=== PATIENT | female | born 1965 | race Caucasian/White ===

== ENCOUNTER 2018-09-24 12:11 | Emergency (ER) | payer MEDICARE ==
[~2018-09-24] VITALS: Ht 167.6 cm; Wt 120.2 kg
--- NOTE | 2018-09-24 12:28 | ED Cough/URI ---
General Chief Complaint: Respiratory Problems Stated Complaint: SOB,COUGH - PT STATES SHE HAS COPD Source: patient, RN notes reviewed Exam Limitations: no limitations History of Present Illness Date Seen by Provider: Sep 24, 2018 Time Seen by Provider: 12:28 Initial Comments Patient presents c/ c/o worsening cough and dyspnea x 3 weeks. Reports a PMH of COPD, but isn't on any meds. Timing/Duration: other (x 3 weeks) Severity/Quality: moderate Prior Episodes/Possible Cause: unknown cause Modifying Factors: Worse With Activity, Worse With Coughing Associated Symptoms: denies symptoms (x/ as noted), cough, shortness of breath Allergies and Home Medications Allergies Coded Allergies: prednisone (Verified Allergy, Unknown, Rash, 09/24/18) Patient Home Medication List Home Medication List Reviewed: Yes Review of Systems Review of Systems Constitutional: see HPI Respiratory: see HPI, dyspnea on exertion, short of breath : No All Other Systems Reviewed Negative Unless Noted: Yes (Negative excepted noted.) Physical Exam Vital Signs - First Documented 09/24/18 12:15 Temp 98.8 Pulse 88 Resp 16 B/P (MAP) 5/6 (6) Pulse Ox 92 O2 Delivery Nasal Cannula O2 Flow Rate 2.00 Capillary Refill : Height: '" Weight: lbs. oz. kg; BMI Method: General Appearance: WD/WN, no apparent distress, obese Respiratory: no respiratory distress, crackles (faint) Cardiovascular: regular rate, rhythm Neurologic/Psychiatric: no motor/sensory deficits, alert, oriented x 3, depressed affect Skin: warm/dry Progress/Results/Core Measures Suspected Sepsis SIRS Temperature: Pulse: Respiratory Rate: Laboratory Tests 09/24/18 13:45: White Blood Count 11.1H Blood Pressure / Mean: Laboratory Tests 09/24/18 13:45: Creatinine 1.11, Platelet Count 199, Total Bilirubin 0.7 Results/Orders Lab Results Laboratory Tests Test 09/24/18 13:43 09/24/18 13:45 09/24/18 16:25 Range/Units Troponin T 17 H 17 H <=10 NG/L White Blood Count 11.1 H 4.3-11.0 10^3/uL Red Blood Count 5.53 4.35-5.85 10^6/uL Hemoglobin 16.5 H 11.5-16.0 G/DL Hematocrit 51 35-52 % Mean Corpuscular Volume 92 80-99 FL Mean Corpuscular Hemoglobin 30 25-34 PG Mean Corpuscular Hemoglobin Concent 32 32-36 G/DL Red Cell Distribution Width 14.0 10.0-14.5 % Platelet Count 199 130-400 10^3/uL Mean Platelet Volume 10.6 H 7.4-10.4 FL Neutrophils (%) (Auto) 82 H 42-75 % Lymphocytes (%) (Auto) 9 L 12-44 % Monocytes (%) (Auto) 7 0-12 % Eosinophils (%) (Auto) 1 0-10 % Basophils (%) (Auto) 1 0-10 % Neutrophils # (Auto) 9.0 H 1.8-7.8 X 10^3 Lymphocytes # (Auto) 1.0 1.0-4.0 X 10^3 Monocytes # (Auto) 0.8 0.0-1.0 X 10^3 Eosinophils # (Auto) 0.1 0.0-0.3 10^3/uL Basophils # (Auto) 0.1 0.0-0.1 10^3/uL D-Dimer 0.27 0.00-0.49 UG/ML Sodium Level 141 135-145 MMOL/L Potassium Level 4.5 3.6-5.0 MMOL/L Chloride Level 102 98-107 MMOL/L Carbon Dioxide Level 26 21-32 MMOL/L Anion Gap 13 5-14 MMOL/L Blood Urea Nitrogen 13 7-18 MG/DL Creatinine 1.11 0.60-1.30 MG/DL Estimat Glomerular Filtration Rate 52 BUN/Creatinine Ratio 12 Glucose Level 101 70-105 MG/DL Calcium Level 9.4 8.5-10.1 MG/DL Corrected Calcium 9.6 8.5-10.1 MG/DL Magnesium Level 1.9 1.8-2.4 MG/DL Total Bilirubin 0.7 0.1-1.0 MG/DL Aspartate Amino Transf (AST/SGOT) 20 5-34 U/L Alanine Aminotransferase (ALT/SGPT) 21 0-55 U/L Alkaline Phosphatase 92 40-136 U/L Pro-B-Type Natriuretic Peptide 931.3 H <75.0 PG/ML Total Protein 7.1 6.4-8.2 GM/DL Albumin 3.8 3.2-4.5 GM/DL My Orders Orders - SHARON BALBUENA DO Ed Iv/Invasive Line Start (09/24/18 12:31) Ekg Tracing (09/24/18 12:31) Cbc With Automated Diff (09/24/18 12:31) Comprehensive Metabolic Panel (09/24/18 12:31) Fibrin Degradation Products (09/24/18 12:31) Magnesium (09/24/18 12:31) Probnp Fs (09/24/18 12:31) Chest Pa/Lat (2 View) (09/24/18 12:31) Ct Chest W (09/24/18 14:32) Troponin T (09/24/18 14:32) Iohexol Injection (Omnipaque 350 Mg/Ml 1 (09/24/18 15:00) Received Contrast (Hold Metformin- Contr (09/24/18 15:00) Sodium Chloride Flush (Catheter Flush Sy (09/24/18 15:00) Ns (Ivpb) (Sodium Chloride 0.9% Ivpb Bag (09/24/18 15:00) Troponin T (09/24/18 16:29) Medications Given in ED Vital Signs/I&O 09/24/18 09/24/18 12:15 19:20 Temp 98.8 98.8 Pulse 88 88 Resp 16 16 B/P (MAP) 5/6 (6) 125/88 (100) Pulse Ox 92 93 O2 Delivery Nasal Cannula Room Air O2 Flow Rate 2.00 Capillary Refill : ECG Initial ECG Impression Date: Sep 24, 2018 Initial ECG Impression Time: 12:47 Initial ECG Rate: 82 Initial ECG Rhythm: Normal Sinus Initial ECG Impression: Nonspecific Changes (probable LAE; RVH) Initial ECG Comparisson: No Previous ECG Available Diagnostic Imaging Diagonstic Imaging: Xray, CT Plain Films/CT/US/NM/MRI: chest (see report) Departure Impression Primary Impression: CHF with unknown LVEF Additional Impressions: Suspected Pulmonary Hypertension Elevated troponin COPD (chronic obstructive pulmonary disease) Disposition: 02 XFER SHT-TRM HOSP Condition: Stable Transfer Transfer Facility: [facility] Method of Transfer: EMS Departure-Patient Inst. Referrals: NO,LOCAL PHYSICIAN (PCP/Family) Primary Care Physician SHARON BALBUENA DO Sep 24, 2018 12:28
--- NOTE | 2018-09-24 13:54 | Diagnostic Imaging Report ---
INDICATION: Cough. COMPARISON: None available. FINDINGS: Bilateral airspace and interstitial opacities are present in the mid and lower lung zones. There is prominence of the right perihilar region. No pleural effusion or pneumothorax. Heart is enlarged. There is also enlargement of the pulmonary trunk. IMPRESSION: 1. Imaging features are most suggestive of interstitial edema versus bronchiolitis. 2. Potential right hilar lymphadenopathy versus enlargement of the pulmonary vasculature due to chronic pulmonary venous hypertension. Consider CT chest with contrast for further characterization. Dictated by: Dictated on workstation # [id number]
[2018-09-24 13:56] LABS: HEMATOCRIT 51 % (35-52); HEMOGLOBIN 16.5 G/DL (11.5-16.0); MEAN CORPUSCULAR HEMOGLOBIN 30 PG (25-34); MEAN CORPUSCULAR VOLUME 92 FL (80-99); WHITE BLOOD COUNT 11.1 10^3/uL (4.3-11.0)
[2018-09-24 13:57] LABS: BASOPHILS # (AUTO) 0.1 10^3/uL (0.0-0.1); BASOPHILS % (AUTO) 1 % (0-10); EOSINOPHILS # (AUTO) 0.1 10^3/uL (0.0-0.3); EOSINOPHILS % (AUTO) 1 % (0-10); LYMPHOCYTES % (AUTO) 9 % (12-44); MEAN CORPUSCULAR HGB CONC 32 G/DL (32-36); MEAN PLATELET VOLUME 10.6 FL (7.4-10.4); MONOCYTES # (AUTO) 0.8 X 10^3 (0.0-1.0); MONOCYTES % (AUTO) 7 % (0-12); NEUTROPHILS % (AUTO) 82 % (42-75); PLATELET COUNT 199 10^3/uL (130-400)
[2018-09-24 14:29] LABS: ALBUMIN 3.8 GM/DL (3.2-4.5); BILIRUBIN,TOTAL 0.7 MG/DL (0.1-1.0); CALCIUM 9.4 MG/DL (8.5-10.1); CREATININE SERUM 1.11 MG/DL (0.60-1.30); MAGNESIUM 1.9 MG/DL (1.8-2.4); POTASSIUM 4.5 MMOL/L (3.6-5.0); TOTAL PROTEIN 7.1 GM/DL (6.4-8.2)
[2018-09-24] MEDS ORDERED: HOLD METFORMIN - RECEIVED CONTRAST 20 ML VIAL IV SCH (15:00)
[2018-09-24] MEDS ORDERED: CATHETER FLUSH 10 ML SYR IV PRN (15:00)
[2018-09-24] MEDS ORDERED: NS 100 ML (IVPB) BAG IV ONE (15:00)
[2018-09-24] MEDS ORDERED: IOHEXOL 350 MG/ML 100 ML (OMNIPAQUE 350) VIAL IV ONE (15:00)
--- NOTE | 2018-09-24 15:29 | Diagnostic Imaging Report ---
PROCEDURE: CT chest with contrast only. TECHNIQUE: Multiple contiguous axial images were obtained through the chest after administration of intravenous contrast. Auto Exposure Controls were utilized during the CT exam to meet ALARA standards for radiation dose reduction. INDICATION: Cough for three weeks and abnormal chest x-ray. Study is performed for further evaluation. COMPARISON: Correlation is made with chest radiograph from earlier the same day. FINDINGS: No axillary lymphadenopathy is identified. There is dilatation to both pulmonary arteries and the main pulmonary artery which measures up to 5.3 cm. Pulmonary arterial hypertension cannot be excluded. No hilar or mediastinal lymphadenopathy is detected. There is no pericardial or pleural fluid identified. Prominent interstitial markings identified in bilateral upper lobes and bilateral lower lobes. There appear to be some generalized centrilobular emphysematous changes noted. Upper abdomen demonstrates a mass in the right adrenal gland, 2.4 cm in size. This may represent an adenoma. Hyperdensities in the kidneys bilaterally most likely represent calcifications. These appear to fill numerous bilateral calyces. IMPRESSION: 1. Dilated main pulmonary artery as well as the right and left main pulmonary arteries. This can be seen with pulmonary arterial hypertension. No mediastinal or hilar lymphadenopathy or mass is detected. 2. Generalized centrilobular emphysematous changes as well as diffuse interstitial changes. 3. Right adrenal mass, perhaps adenoma. Continued followup at six months recommended to confirm stability. 4. Bilateral nephrolithiasis. Dictated by: Dictated on workstation # [id number]
[2018-09-24 19:20] VITALS: BP 125/88
== END 2018-09-24 20:13 | disposition short-term general hospital (02) ==
LOC: ER FS 12:13
DX: R79.89 Other specified abnormal findings of blood chemistry (principal); I50.9 Heart failure, unspecified; J44.9 Chronic obstructive pulmonary disease, unspecified; Z79.52 Long term (current) use of systemic steroids
CPT/HCPCS: 36415; 71046; 71260; 80053; 83735; 83880; 84484; 85025; 85379

== ENCOUNTER 2018-10-15 09:31 | Outpatient (RCR) | payer MEDICARE | END 2019-01-13 | disposition home or self-care (01) | LOC: PULM 09:31 | PROVIDERS: ATTEND Internal Medicine Critical Care Medicine | DX: J44.9 Chronic obstructive pulmonary disease, unspecified (principal); J96.11 Chronic respiratory failure with hypoxia; I27.20 Pulmonary hypertension, unspecified | CPT/HCPCS: 99211 ==

== ENCOUNTER 2019-05-04 23:34 | Emergency (ER) | payer MEDICARE ==
[~2019-05-04] VITALS: Ht 167.7 cm; Wt 113.6 kg
--- NOTE | 2019-05-04 23:48 | ED Cough/URI ---
General Stated Complaint: FALL Source: patient, EMS Exam Limitations: no limitations History of Present Illness Date Seen by Provider: May 04, 2019 Time Seen by Provider: 23:45 Initial Comments 53-year-old female brought in by EMS following a fall. Patient has a history of COPD and has been having a cough for about a week. She is normally on 2 L of oxygen but is increase it to 4 over the last week. She reports that she was having a coughing fit a chair when she had a brief syncope event fell and has abrasion on her forehead. She denies any nausea vomiting or other systemic complaints at this time. She was seen 3 days ago by her primary started on Levaquin. She is given a prednisone shot the day. She is not having fevers, chills, chest pain, diarrhea, sore throat. Allergies and Home Medications Home Medications Benzonatate 100 Mg Capsule, 100 MG PO Q8H PRN for COUGH Prescribed by: ELIA STEPHEN on 05/05/19 0034 Patient Home Medication List Home Medication List Reviewed: Yes Review of Systems Review of Systems Constitutional: No chills, No dizziness, No fever EENTM: no symptoms reported Respiratory: cough; No short of breath Cardiovascular: No chest pain Gastrointestinal: no symptoms reported Genitourinary: no symptoms reported Musculoskeletal: no symptoms reported Skin: see HPI Past Weyrwhg-Ctmlly-Bynaeo Hx Past Med/Social Hx: Reviewed Nursing Past Med/Soc Hx Physical Exam Vital Signs - First Documented 05/04/19 23:46 Temp 36.5 Pulse 96 Resp 20 B/P (MAP) 143/111 (122) Pulse Ox 84 O2 Delivery Room Air O2 Flow Rate 4.00 Capillary Refill : Height: '" Weight: lbs. oz. kg; BMI Method: General Appearance: WD/WN, no apparent distress, other (nasal cannula in place) Eyes: Bilateral Eye Normal Inspection, Bilateral Eye PERRL, Bilateral Eye EOMI HEENT: PERRL/EOMI, TMs normal Neck: non-tender, full range of motion, supple Respiratory: No respiratory distress; decreased breath sounds (mild diffuse); No wheezing Cardiovascular: normal peripheral pulses, regular rate, rhythm Gastrointestinal: non tender, soft Extremities: non-tender, no calf tenderness Neurologic/Psychiatric: [employer] II-XII nml as tested, no motor/sensory deficits, alert, normal mood/affect, oriented x 3 Skin: other (small abrasion forehead) Progress/Results/Core Measures Suspected Sepsis SIRS Temperature: Pulse: Respiratory Rate: Blood Pressure / Mean: Results/Orders Micro Results Microbiology 05/04/19 Influenza Types A,B Antigen (JOLENE) - Final, Complete My Orders Orders - ELIA STEPHEN DO Albuterol/Ipra Inhalation Soln (Duoneb I (05/05/19 00:00) Dexamethasone Injection (Decadron Inject (05/05/19 00:00) Svn Small Volume Nebulizer (05/04/19 23:48) Influenza A And B Antigens (05/04/19 23:48) Chest Pa/Lat (2 View) (05/04/19 23:48) Benzonatate Capsule (Tessalon Perles) (05/05/19 00:00) Medications Given in ED Current Medications Medications Dose Ordered Sig/Marga Route Start Time Stop Time Status Last Admin Dose Admin Albuterol/ Ipratropium 3 ml ONCE ONCE INH 05/05/19 00:00 05/05/19 00:01 DC 05/04/19 23:56 3 ML Dexamethasone Sodium Phosphate 10 mg ONCE ONCE IV 05/05/19 00:00 05/05/19 00:01 DC 05/04/19 23:56 10 MG Vital Signs/I&O 05/04/19 05/05/19 23:46 00:30 Temp 36.5 36.5 Pulse 96 96 Resp 20 20 B/P (MAP) 143/111 (122) 143/111 (122) Pulse Ox 84 84 O2 Delivery Room Air O2 Flow Rate 4.00 4.00 Capillary Refill : Progress Note : Progress Note pt currently on levaguin, no indications for a head ct. Pt stable throughout stay with symptoms consistant with post tussive syncope due to vasovagal event. pt to be discharged home in stable condition. Departure Impression Primary Impression: Vasovagal syncope Additional Impression: COPD (chronic obstructive pulmonary disease) Qualified Codes: J43.9 - Emphysema, unspecified Disposition: HOME, SELF-CARE Condition: Stable Departure-Patient Inst. Patient Instructions: COPD Including Emphysema (DC) Scripts Benzonatate (TESSALON PERLES) 100 Mg Capsule 100 MG PO Q8H PRN for COUGH, #20 CAP Prov: ELIA STEPHEN DO 05/05/19 ELIA STEPHEN DO May 04, 2019 23:48
[2019-05-05] MEDS ORDERED: RT-ALBUTEROL/IPRATROPIUM 3 ML (DUONEB) VIAL INH ONE
[2019-05-05] MEDS ORDERED: BENZONATATE 100 MG (TESSALON) CAPSULE PO SCH
[2019-05-05] MEDS ORDERED: DEXAMETHASONE 10 MG/ML (DECADRON) 1 ML VIAL IV ONE
[2019-05-05 00:30] VITALS: BP 143/111
[2019-05-05] MEDS ORDERED: BENZ100C18 PO (00:34)
--- NOTE | 2019-05-05 07:43 | Diagnostic Imaging Report ---
HISTORY: Coughing for a week TECHNIQUE: 2 views of the chest COMPARISON: 09/24/2018 FINDINGS: Interstitial opacities in the lung bases are redemonstrated. There is new airspace opacity in the left upper lobe. No pleural effusion or pneumothorax is seen. There is prominence of the right hilum which is stable since the prior exam and represents pulmonary vasculature. IMPRESSION: 1. New airspace opacity in the left upper lobe concerning for pneumonia. 2. Interstitial opacities and prominence of the right hilum are stable since the prior exam. Dictated by: Dictated on workstation # [id number]
== END 2019-05-05 00:38 | disposition home or self-care (01) ==
LOC: EDUNIT# 23:34 → ER FS 23:46
DX: R55 Syncope and collapse (principal); J44.9 Chronic obstructive pulmonary disease, unspecified
CPT/HCPCS: 71046; 87804